=== PATIENT | female | born 1960 | race African-American/Black ===

== ENCOUNTER 2018-07-19 11:10 | Emergency (ER) | payer MEDICAID ==
[~2018-07-19] VITALS: Ht 165.1 cm; Wt 111.0 kg
[2018-07-19] MEDS ORDERED: METHYLPREDNISOLONE SOD SUCC 125 MG/2 ML VIAL IV STA (11:21)
[2018-07-19] MEDS ORDERED: ALBUTEROL (0.083%) 2.5MG/3ML NEB HHN STA (11:21)
[2018-07-19] MEDS ORDERED: IPRATROPIUM BROMIDE (0.02%) 0.5MG/2.5ML NEB HHN STA (11:21)
[2018-07-19] MEDS ORDERED: KETOROLAC 30MG/ML VIAL IV ONE (12:30)
[2018-07-19 12:49] LABS: BASOPHILS % 0.4 % (0.0-2.0); EOSINOPHILS % 5.9 % (0.0-5.0); HEMATOCRIT. 42.9 % (36.0-48.0); LYMPHOCYTES % 40.9 % (20.0-50.0); MEAN CORPUSCULAR HEMOGLOBIN 29.8 pg (28.0-32.0); MEAN CORPUSCULAR VOLUME 91.2 fL (81.0-99.0); MEAN PLATELET VOLUME 8.7 fl (7.4-10.4); MONOCYTES % 10.6 % (2.0-8.0); NEUTROPHILS % 42.2 % (40.0-76.0); PLATELET 217 x1000/uL (130-400); RED CELL DISTRIBUTION WIDTH 13.6 % (11.6-14.6)
[2018-07-19 12:55] LABS: CHLORIDE 102 mEq/L (98-107)
[2018-07-19] MEDS ORDERED: OLANZAPINE 10 MG/VIAL IM ONE (13:45)
[2018-07-19 14:53] VITALS: BP 165/68
== END 2018-07-19 14:54 | disposition home or self-care (01) ==
LOC: ER 12:24
DX: J06.9 Acute upper respiratory infection, unspecified (principal); J45.901 Unspecified asthma with (acute) exacerbation; I10 Essential (primary) hypertension; E78.00 Pure hypercholesterolemia, unspecified; Z87.891 Personal history of nicotine dependence
CPT/HCPCS: 36415; 71045; 80053; 85025; 94640; 96374; 96375; 99285; J1885; J2930; J7611

== ENCOUNTER 2018-11-28 03:57 | Inpatient (IN) | payer MEDICAID ==
[~2018-11-28] VITALS: Ht 165.1 cm; Wt 111.1 kg
[2018-11-28] MEDS ORDERED: IPRATROPIUM BROMIDE (0.02%) 0.5MG/2.5ML NEB HHN STA ×2 (04:50→06:05)
[2018-11-28] MEDS ORDERED: PREDNISONE 20MG TABLET PO STA (04:50)
[2018-11-28] MEDS ORDERED: ALBUTEROL (0.083%) 2.5MG/3ML NEB HHN STA ×2 (04:50→06:05)
[2018-11-28] MEDS ORDERED: ASPIRIN 81MG TABLET PO ONE (05:00)
[2018-11-28 05:49] LABS: BASOPHILS % 0.3 % (0.0-2.0); EOSINOPHILS % 0.8 % (0.0-5.0); HEMATOCRIT. 41.7 % (36.0-48.0); HEMOGLOBIN. 13.8 g/dL (12.0-16.0); LYMPHOCYTES % 19.1 % (20.0-50.0); MEAN CORPUSCULAR HEMOGLOBIN 30.3 pg (28.0-32.0); MEAN CORPUSCULAR VOLUME 91.3 fL (81.0-99.0); MEAN PLATELET VOLUME 8.6 fl (7.4-10.4); MONOCYTES % 9.7 % (2.0-8.0); NEUTROPHILS % 70.1 % (40.0-76.0); PLATELET 217 x1000/uL (130-400); RED BLOOD CELL COUNT 4.57 mill/uL (4.2-5.4); RED CELL DISTRIBUTION WIDTH 13.4 % (11.6-14.6)
[2018-11-28 05:53] LABS: CHLORIDE 102 mEq/L (98-107)
[2018-11-28] MEDS ORDERED: ALBUTEROL (0.5%) 2.5MG/0.5ML NEB HHN ONE (07:15)
[2018-11-28] MEDS ORDERED: IPRATROPIUM/ALBUTEROL 0.5-3(2.5)MG/3ML NEB ONE (07:15)
[2018-11-28] MEDS ORDERED: MAGNESIUM 2 G PREMIX 50 ML IV STA (08:10)
[2018-11-28] MEDS ORDERED: METHYLPREDNISOLONE SOD SUCC 125 MG/2 ML VIAL IV STA (08:50)
[2018-11-28] MEDS ORDERED: ALBUTEROL (0.083%) 2.5MG/3ML NEB HHN ONE ×2 (12:30→22:15)
[2018-11-29] MEDS: CLONIDINE 0.2MG TABLET PO PRN ×2 (00:18→23:42)
[2018-11-29 02:10] VITALS: BP 171/86
[2018-11-29] MEDS ORDERED: MORPHINE SULFATE 4 MG/ML CPJ (NOT FOR IM USE) IV PRN (04:00)
[2018-11-29] MEDS ORDERED: ONDANSETRON HCL 4MG/2ML INJ IV PRN (04:00)
[2018-11-29 05:00] VITALS: BP 160/89
[2018-11-29] MEDS: METHYLPREDNISOLONE SOD SUCC 40 MG/ML VIAL IV SCH ×3 (05:21→21:07)
[2018-11-29] MEDS: AMLODIPINE 10MG TABLET PO SCH (07:54)
[2018-11-29 08:00] VITALS: BP 127/91
[2018-11-29] MEDS: IPRATROPIUM/ALBUTEROL 0.5-3(2.5)MG/3ML NEB HHN SCH ×4 (08:24→21:25)
[2018-11-29] MEDS ORDERED: POTASSIUM CHLORIDE 20MEQ TABLET SR PO SCH (10:30)
[2018-11-29] MEDS ORDERED: GUAIFENESIN-DM 200MG-20MG/10ML UDC PO PRN (10:30)
[2018-11-29 12:00] VITALS: BP 140/68
[2018-11-29] MEDS: AZITHROMYCIN 500 MG TABLET PO SCH (13:34)
[2018-11-29] MEDS ORDERED: TERBUTALINE SULFATE 1MG/ML VIAL SUBCUT NR (15:00)
[2018-11-29 15:35] LABS: CLARITY URINE CLEAR (CLEAR); COLOR URINE YELLOW (YELLOW); KETONES URINE NEGATIVE (NEGATIVE); LEUKOCYTE ESTERASE URINE NEGATIVE (NEGATIVE); NITRITE URINE NEGATIVE (NEGATIVE); OCCULT BLOOD URINE NEGATIVE (NEGATIVE); PH URINE 6.5 (4.5-8.0); PROTEIN URINE NEGATIVE (NEGATIVE); SPECIFIC GRAVITY URINE 1.005 (1.005-1.030); UROBILINOGEN URINE 0.2 E.U./dL (0.2-1.0)
[2018-11-29 15:52] LABS: *AMPHETAMINES SCREEN URINE NEGATIVE (NEGATIVE); *BARBITURATES SCREEN URINE NEGATIVE (NEGATIVE); *BENZODIAZEPINES SCREEN URINE NEGATIVE (NEGATIVE); *COCAINE SCREEN URINE NEGATIVE (NEGATIVE)
[2018-11-29 15:53] LABS: CANNABINOID URINE SCREEN NEGATIVE (NEGATIVE); OPIATES URINE SCREEN NEGATIVE (NEGATIVE); PHENCYCLIDINE URINE SCREEN NEGATIVE (NEGATIVE)
[2018-11-29 15:56] LABS: METHADONE URINE SCREEN NEGATIVE (NEGATIVE)
[2018-11-29 16:00] VITALS: BP 158/83
[2018-11-29 20:00] VITALS: BP 153/70
[2018-11-29] MEDS ORDERED: MONTELUKAST SODIUM 10MG TABLET PO SCH (21:00)
[2018-11-29] MEDS: GUAIFENESIN 600MG ER TABLET PO SCH (21:07)
[2018-11-30] VITALS: BP 174/91
[2018-11-30] MEDS: IPRATROPIUM/ALBUTEROL 0.5-3(2.5)MG/3ML NEB HHN SCH ×4 (00:36→12:33)
[2018-11-30 04:00] VITALS: BP 139/69
[2018-11-30] MEDS: METHYLPREDNISOLONE SOD SUCC 40 MG/ML VIAL IV SCH ×2 (06:14→13:19)
[2018-11-30 07:42] LABS: BASOPHILS % 0.1 % (0.0-2.0); HEMATOCRIT. 41.8 % (36.0-48.0); HEMOGLOBIN. 13.4 g/dL (12.0-16.0); LYMPHOCYTES % 7.8 % (20.0-50.0); MEAN CORPUSCULAR HEMOGLOBIN 29.5 pg (28.0-32.0); MEAN CORPUSCULAR VOLUME 92.3 fL (81.0-99.0); MEAN PLATELET VOLUME 9.4 fl (7.4-10.4); MONOCYTES % 4.3 % (2.0-8.0); NEUTROPHILS % 87.8 % (40.0-76.0); PLATELET 255 x1000/uL (130-400); RED BLOOD CELL COUNT 4.54 mill/uL (4.2-5.4); RED CELL DISTRIBUTION WIDTH 13.3 % (11.6-14.6)
[2018-11-30 07:55] VITALS: BP 162/76
[2018-11-30 08:13] LABS: CHLORIDE 98 mEq/L (98-107)
[2018-11-30] MEDS: AZITHROMYCIN 500 MG TABLET PO SCH (09:18)
[2018-11-30] MEDS: AMLODIPINE 10MG TABLET PO SCH (09:18)
[2018-11-30] MEDS: GUAIFENESIN 600MG ER TABLET PO SCH (09:18)
[2018-11-30] MEDS ORDERED: CLONIDINE 0.1MG TABLET PO PRN (11:00)
[2018-11-30 11:21] VITALS: BP 136/62
[2018-11-30 12:00] VITALS: BP 136/62
== END 2018-11-30 13:45 | disposition home or self-care (01) | DRG 133 ==
LOC: ER 04:15 → 8WST 08:33 → ENRESERV 19:42 → CANRESERV 19:42 → ENRESERV 23:59
PROVIDERS: ADMIT Internal Medicine; ATTEND Internal Medicine
DX: J96.00 Acute respiratory failure, unspecified whether with hypoxia or hypercapnia (principal); I11.0 Hypertensive heart disease with heart failure; J44.1 Chronic obstructive pulmonary disease with (acute) exacerbation; E66.01 Morbid (severe) obesity due to excess calories; I50.40 Unspecified combined systolic (congestive) and diastolic (congestive) heart failure; J45.901 Unspecified asthma with (acute) exacerbation; Z68.41 Body mass index [BMI] 40.0-44.9, adult; E87.6 Hypokalemia; I16.0 Hypertensive urgency; E78.5 Hyperlipidemia, unspecified; Z60.2 Problems related to living alone; D72.821 Monocytosis (symptomatic); E78.00 Pure hypercholesterolemia, unspecified
CPT/HCPCS: 36415; 71045; 80048; 80305; 83036; 83880; 84484; 93005; 93970; 94640; 96365; 96366; 96375; 99285; J2920; J2930; J3105; J3475; J7512; J7611; J7620

== ENCOUNTER 2018-12-19 21:09 | Emergency (ER) | payer MEDICAID ==
[~2018-12-19] VITALS: Ht 165.1 cm; Wt 111.0 kg
[2018-12-19] MEDS ORDERED: PREDNISONE 20MG TABLET PO STA (22:01)
[2018-12-19] MEDS ORDERED: IPRATROPIUM/ALBUTEROL 0.5-3(2.5)MG/3ML NEB HHN ONE (22:15)
[2018-12-19 22:38] LABS: BASOPHILS % 0.7 % (0.0-2.0); EOSINOPHILS % 5.2 % (0.0-5.0); HEMATOCRIT. 41.4 % (36.0-48.0); HEMOGLOBIN. 13.6 g/dL (12.0-16.0); LYMPHOCYTES % 33.1 % (20.0-50.0); MEAN CORPUSCULAR HEMOGLOBIN 29.7 pg (28.0-32.0); MEAN CORPUSCULAR VOLUME 90.6 fL (81.0-99.0); MEAN PLATELET VOLUME 8.8 fl (7.4-10.4); MONOCYTES % 11.4 % (2.0-8.0); NEUTROPHILS % 49.6 % (40.0-76.0); PLATELET 202 x1000/uL (130-400); RED BLOOD CELL COUNT 4.57 mill/uL (4.2-5.4); RED CELL DISTRIBUTION WIDTH 13.1 % (11.6-14.6)
[2018-12-19 22:40] LABS: CHLORIDE 101 mEq/L (98-107)
[2018-12-19 22:43] LABS: PROTHROMBIN TIME 9.6 sec (9.1-11.1)
[2018-12-19 23:21] VITALS: BP 162/77
== END 2018-12-19 23:21 | disposition home or self-care (01) ==
LOC: ER 21:09
DX: J20.9 Acute bronchitis, unspecified (principal); F17.210 Nicotine dependence, cigarettes, uncomplicated
CPT/HCPCS: 36415; 71045; 80053; 83880; 84484; 85025; 85610; 93005; 94640; 99284; J7512; J7620; Z7610

== ENCOUNTER 2019-06-14 07:01 | Inpatient (IN) | payer MEDICAID ==
[~2019-06-14] VITALS: Ht 165.1 cm; Wt 108.9 kg
[2019-06-14] MEDS ORDERED: METHYLPREDNISOLONE SOD SUCC 125 MG/2 ML VIAL IV STA (08:12)
[2019-06-14] MEDS ORDERED: ALBUTEROL (0.083%) 2.5MG/3ML NEB HHN STA ×2 (08:12→09:14)
[2019-06-14] MEDS ORDERED: MAGNESIUM 2 G PREMIX 50 ML IV STA (08:12)
[2019-06-14] MEDS ORDERED: IPRATROPIUM BROMIDE (0.02%) 0.5MG/2.5ML NEB HHN STA (08:12)
[2019-06-14 09:07] LABS: CHLORIDE 105 mEq/L (98-107)
[2019-06-14 09:22] LABS: BASOPHILS % 0.5 % (0.0-2.0); EOSINOPHILS % 3.9 % (0.0-5.0); HEMATOCRIT. 40.3 % (36.0-48.0); HEMOGLOBIN. 13.5 g/dL (12.0-16.0); LYMPHOCYTES % 32.4 % (20.0-50.0); MEAN CORPUSCULAR HEMOGLOBIN 30.5 pg (28.0-32.0); MEAN CORPUSCULAR VOLUME 90.9 fL (81.0-99.0); MEAN PLATELET VOLUME 8.4 fl (7.4-10.4); NEUTROPHILS % 51.2 % (40.0-76.0); PLATELET 202 x1000/uL (130-400); RED BLOOD CELL COUNT 4.43 mill/uL (4.2-5.4); RED CELL DISTRIBUTION WIDTH 13.4 % (11.6-14.6)
[2019-06-14] MEDS ORDERED: CLONIDINE 0.1MG TABLET PO PRN (12:00)
[2019-06-14] MEDS ORDERED: GUAIFENESIN 200MG/10ML SUGAR FREE UDC PO PRN (12:00)
[2019-06-14] MEDS ORDERED: IPRATROPIUM/ALBUTEROL 0.5-3(2.5)MG/3ML NEB INH PRN (12:00)
[2019-06-14] MEDS ORDERED: DOCUSATE SODIUM 100MG CAPSULE PO PRN (12:00)
[2019-06-14] MEDS ORDERED: ONDANSETRON HCL 4MG/2ML INJ IV PRN (12:00)
[2019-06-14] MEDS ORDERED: MAGNESIUM/ALUMINUM HYDROXIDE/SIMETHICONE 30ML UDC PO PRN (12:00)
[2019-06-14] MEDS ORDERED: ACETAMINOPHEN 325MG TABLET PO PRN (12:00)
[2019-06-14] MEDS ORDERED: DIPHENHYDRAMINE 50MG/ML VIAL IV PRN (12:00)
[2019-06-14 13:10] VITALS: BP 177/88
[2019-06-14 13:31] VITALS: BP 177/88
[2019-06-14] MEDS: ENOXAPARIN 30MG/0.3ML SYR SUBCUT SCH ×2 (13:48→21:00)
[2019-06-14] MEDS: METHYLPREDNISOLONE SOD SUCC 125 MG/2 ML VIAL IV SCH ×2 (13:49→21:28)
[2019-06-14 14:54] LABS: PHOSPHORUS 2.6 mg/dL (2.5-4.9)
[2019-06-14] MEDS: IPRATROPIUM/ALBUTEROL 0.5-3(2.5)MG/3ML NEB HHN SCH ×2 (15:22→20:52)
[2019-06-14 16:00] VITALS: BP 165/77
[2019-06-14 19:12] LABS: *AMPHETAMINES SCREEN URINE NEGATIVE (NEGATIVE); *BARBITURATES SCREEN URINE NEGATIVE (NEGATIVE); *BENZODIAZEPINES SCREEN URINE NEGATIVE (NEGATIVE); *COCAINE SCREEN URINE NEGATIVE (NEGATIVE); CANNABINOID URINE SCREEN PRESUMTIVE POSITIVE (NEGATIVE); METHADONE URINE SCREEN NEGATIVE (NEGATIVE); OPIATES URINE SCREEN NEGATIVE (NEGATIVE); PHENCYCLIDINE URINE SCREEN NEGATIVE (NEGATIVE)
[2019-06-14] MEDS: AZITHROMYCIN 500 MG in DEXT 5% WATER 250 ML IV SCH (19:19)
[2019-06-14 20:00] VITALS: BP 141/84
[2019-06-14] MEDS: GUAIFENESIN 600MG ER TABLET PO SCH (20:27)
[2019-06-15] VITALS: BP 159/77
[2019-06-15] MEDS: IPRATROPIUM/ALBUTEROL 0.5-3(2.5)MG/3ML NEB HHN SCH ×5 (01:23→15:19)
[2019-06-15 04:00] VITALS: BP 165/79
[2019-06-15] MEDS: METHYLPREDNISOLONE SOD SUCC 125 MG/2 ML VIAL IV SCH ×2 (05:19→14:00)
[2019-06-15 08:00] VITALS: BP 122/89
[2019-06-15] MEDS: ENOXAPARIN 30MG/0.3ML SYR SUBCUT SCH (09:10)
[2019-06-15] MEDS: GUAIFENESIN 600MG ER TABLET PO SCH (09:10)
[2019-06-15 12:00] VITALS: BP 164/81
[2019-06-15] MEDS: AZITHROMYCIN 500 MG in DEXT 5% WATER 250 ML IV SCH (14:30)
[2019-06-15 16:00] VITALS: BP 101/62
[2019-06-15 16:58] VITALS: BP 130/70
[2019-06-16] MEDS ORDERED: AZITHROMYCIN 500 MG TABLET PO SCH (09:00)
== END 2019-06-15 19:15 | disposition home or self-care (01) | DRG 133 ==
LOC: ER 07:01 → ENRESERV 11:12 → 8WST 12:29
PROVIDERS: ADMIT Internal Medicine; ATTEND Internal Medicine
DX: J96.00 Acute respiratory failure, unspecified whether with hypoxia or hypercapnia (principal); J45.901 Unspecified asthma with (acute) exacerbation; J20.9 Acute bronchitis, unspecified; I10 Essential (primary) hypertension; F12.90 Cannabis use, unspecified, uncomplicated; E66.9 Obesity, unspecified
CPT/HCPCS: 36415; 71045; 80305; 83735; 83880; 84100; 84484; 93005; 94640; 96365; 96366; 96375; 97166; 97535; 99285; J0456; J1650; J2930; J3475; J7060; J7611; J7620

== ENCOUNTER 2019-06-16 09:22 | Inpatient (IN) | payer MEDICAID, OTHER ==
[~2019-06-16] VITALS: Ht 165.1 cm; Wt 110.2 kg
[2019-06-16] MEDS ORDERED: METHYLPREDNISOLONE SOD SUCC 125 MG/2 ML VIAL IV STA (09:54)
[2019-06-16] MEDS ORDERED: ALBUTEROL (0.083%) 2.5MG/3ML NEB HHN STA (09:54)
[2019-06-16] MEDS ORDERED: MAGNESIUM 2 G PREMIX 50 ML IV STA (09:54)
[2019-06-16] MEDS ORDERED: IPRATROPIUM BROMIDE (0.02%) 0.5MG/2.5ML NEB HHN STA (09:54)
[2019-06-16 11:22] LABS: CHLORIDE 101 mEq/L (98-107)
[2019-06-16 11:26] LABS: BASOPHILS % 0.2 % (0.0-2.0); EOSINOPHILS % 0.3 % (0.0-5.0); HEMOGLOBIN. 13.7 g/dL (12.0-16.0); LYMPHOCYTES % 20.1 % (20.0-50.0); MEAN CORPUSCULAR HEMOGLOBIN 30.5 pg (28.0-32.0); MEAN CORPUSCULAR VOLUME 90.9 fL (81.0-99.0); MEAN PLATELET VOLUME 9.3 fl (7.4-10.4); MONOCYTES % 9.7 % (2.0-8.0); NEUTROPHILS % 69.7 % (40.0-76.0); PLATELET 237 x1000/uL (130-400); RED BLOOD CELL COUNT 4.51 mill/uL (4.2-5.4); RED CELL DISTRIBUTION WIDTH 13.8 % (11.6-14.6)
[2019-06-16] MEDS ORDERED: LEVOFLOXACIN 750MG PREMIX 150 ML IV ONE (11:45)
[2019-06-16 14:30] VITALS: BP 150/88
[2019-06-16] MEDS ORDERED: ACETAMINOPHEN 325MG TABLET PO PRN (14:30)
[2019-06-16] MEDS ORDERED: IPRATROPIUM/ALBUTEROL 0.5-3(2.5)MG/3ML NEB HHN PRN (14:30)
[2019-06-16] MEDS ORDERED: GUAIFENESIN-DM 200MG-20MG/10ML UDC PO PRN (14:30)
[2019-06-16] MEDS ORDERED: ONDANSETRON HCL 4MG/2ML INJ IV PRN (14:30)
[2019-06-16] MEDS: IPRATROPIUM/ALBUTEROL 0.5-3(2.5)MG/3ML NEB HHN SCH ×2 (16:45→21:48)
[2019-06-16] MEDS: METHYLPREDNISOLONE SOD SUCC 40 MG/ML VIAL IV SCH (16:53)
[2019-06-16] MEDS: ENOXAPARIN 30MG/0.3ML SYR SUBCUT SCH (16:53)
[2019-06-16 20:00] VITALS: BP 182/87
[2019-06-16] MEDS: AMLODIPINE 10MG TABLET PO SCH (22:31)
[2019-06-16] MEDS: GUAIFENESIN 600MG ER TABLET PO SCH (22:31)
[2019-06-17] VITALS: BP 160/81
[2019-06-17] MEDS: METHYLPREDNISOLONE SOD SUCC 40 MG/ML VIAL IV SCH ×4 (00:35→16:03)
[2019-06-17] MEDS: IPRATROPIUM/ALBUTEROL 0.5-3(2.5)MG/3ML NEB HHN SCH ×4 (02:08→23:25)
[2019-06-17 04:00] VITALS: BP 190/85
[2019-06-17] MEDS: ENOXAPARIN 30MG/0.3ML SYR SUBCUT SCH ×2 (05:28→18:00)
[2019-06-17] MEDS: CLONIDINE 0.1MG TABLET PO PRN ×2 (05:28→20:38)
[2019-06-17 08:00] VITALS: BP 115/66
[2019-06-17] MEDS: BENAZEPRIL 10MG TABLET PO SCH (08:45)
[2019-06-17] MEDS: AMLODIPINE 10MG TABLET PO SCH (08:45)
[2019-06-17] MEDS: GUAIFENESIN 600MG ER TABLET PO SCH ×2 (08:45→20:38)
[2019-06-17 12:00] VITALS: BP 120/74
[2019-06-17] MEDS ORDERED: LEVOFLOXACIN 750MG PREMIX 150 ML IV SCH (12:00)
[2019-06-17] MEDS ORDERED: GUAIFENESIN-DM 200MG-20MG/10ML UDC PO PRN (13:45)
[2019-06-17 16:00] VITALS: BP 160/73
[2019-06-17] MEDS: BUDESONIDE 0.5MG/2ML NEB HHN SCH (16:28)
[2019-06-17 20:00] VITALS: BP 171/87
[2019-06-18] VITALS: BP 148/77
[2019-06-18 04:00] VITALS: BP 168/66
[2019-06-18] MEDS: IPRATROPIUM/ALBUTEROL 0.5-3(2.5)MG/3ML NEB HHN SCH ×2 (04:27→09:15)
[2019-06-18] MEDS: ENOXAPARIN 30MG/0.3ML SYR SUBCUT SCH (06:00)
[2019-06-18 08:00] VITALS: BP 171/82
[2019-06-18] MEDS: METHYLPREDNISOLONE SOD SUCC 40 MG/ML VIAL IV SCH ×2 (08:00)
[2019-06-18 08:54] LABS: CLARITY URINE CLOUDY (CLEAR); COLOR URINE YELLOW (YELLOW); KETONES URINE NEGATIVE (NEGATIVE); LEUKOCYTE ESTERASE URINE NEGATIVE (NEGATIVE); NITRITE URINE NEGATIVE (NEGATIVE); OCCULT BLOOD URINE NEGATIVE (NEGATIVE); PROTEIN URINE NEGATIVE (NEGATIVE)
[2019-06-18] MEDS: BENAZEPRIL 10MG TABLET PO SCH (09:00)
[2019-06-18] MEDS: AMLODIPINE 10MG TABLET PO SCH (09:00)
[2019-06-18] MEDS: GUAIFENESIN 600MG ER TABLET PO SCH (09:00)
[2019-06-18 09:09] VITALS: BP 171/82
[2019-06-18] MEDS: BUDESONIDE 0.5MG/2ML NEB HHN SCH (09:15)
[2019-06-18 09:52] LABS: *AMPHETAMINES SCREEN URINE NEGATIVE (NEGATIVE); *BARBITURATES SCREEN URINE NEGATIVE (NEGATIVE)
[2019-06-18 09:53] LABS: *BENZODIAZEPINES SCREEN URINE NEGATIVE (NEGATIVE); *COCAINE SCREEN URINE NEGATIVE (NEGATIVE); CANNABINOID URINE SCREEN NEGATIVE (NEGATIVE); METHADONE URINE SCREEN NEGATIVE (NEGATIVE); OPIATES URINE SCREEN NEGATIVE (NEGATIVE); PHENCYCLIDINE URINE SCREEN NEGATIVE (NEGATIVE)
[2019-06-18] MEDS ORDERED: LEVOFLOXACIN 750MG PREMIX 150 ML IV SCH (12:00)
== END 2019-06-18 11:56 | disposition home or self-care (01) | DRG 139 ==
LOC: ER 09:22 → 8WST 12:35 → ENRESERV 13:15
PROVIDERS: ADMIT Internal Medicine; ATTEND Internal Medicine
DX: J18.1 Lobar pneumonia, unspecified organism (principal); J96.00 Acute respiratory failure, unspecified whether with hypoxia or hypercapnia; J45.901 Unspecified asthma with (acute) exacerbation; Z68.41 Body mass index [BMI] 40.0-44.9, adult; R65.10 Systemic inflammatory response syndrome (SIRS) of non-infectious origin without acute organ dysfunction; I10 Essential (primary) hypertension; F12.90 Cannabis use, unspecified, uncomplicated; E66.9 Obesity, unspecified; Z71.3 Dietary counseling and surveillance; Z87.891 Personal history of nicotine dependence
CPT/HCPCS: 36415; 71045; 80305; 81003; 83880; 84484; 93005; 94640; 96365; 96367; 96375; 99285; J1650; J1956; J2920; J2930; J3475; J7611; J7620; J7626

== ENCOUNTER 2019-09-06 22:33 | Emergency (ER) | payer MEDICAID ==
[~2019-09-06] VITALS: Ht 165.1 cm; Wt 100.0 kg
[2019-09-07] MEDS ORDERED: DIAZEPAM 5 MG TABLET PO ONE (00:45)
[2019-09-07] MEDS ORDERED: KETOROLAC 60MG/2ML VIAL IM ONE (02:00)
[2019-09-07 02:57] VITALS: BP 148/80
== END 2019-09-07 02:58 | disposition home or self-care (01) ==
LOC: ER 22:33
DX: M54.41 Lumbago with sciatica, right side (principal); J45.909 Unspecified asthma, uncomplicated; I10 Essential (primary) hypertension
CPT/HCPCS: 96372; 99283; J1885; Z7610

== ENCOUNTER 2019-09-07 05:37 | Emergency (ER) | payer MEDICAID ==
[~2019-09-07] VITALS: Ht 167.6 cm; Wt 104.0 kg
[2019-09-07] MEDS ORDERED: KETOROLAC 60MG/2ML VIAL IM ONE (07:00)
[2019-09-07] MEDS ORDERED: DEXAMETHASONE 4MG/ML 1ML VIAL IM ONE (07:00)
[2019-09-07] MEDS ORDERED: HYDROCODONE/ACETAMINOPHEN 5/325MG TABLET PO ONE (07:00)
[2019-09-07 09:30] VITALS: BP 158/85
== END 2019-09-07 11:00 | disposition home or self-care (01) ==
LOC: ER 05:55
DX: M54.41 Lumbago with sciatica, right side (principal); J45.909 Unspecified asthma, uncomplicated; E78.00 Pure hypercholesterolemia, unspecified; I10 Essential (primary) hypertension; Z91.041 Radiographic dye allergy status
CPT/HCPCS: 96372; 99283; J1100; J1885

== ENCOUNTER 2019-11-14 06:44 | Inpatient (IN) | payer MEDICAID ==
[~2019-11-14] VITALS: Ht 165.1 cm; Wt 115.7 kg
[~2019-11-14 06:44] MED LIST: ALBU18HF2 IH; FLUT1DIS3 INH; GABA-531 MT; HYDR-4001 MT
[2019-11-14] MEDS ORDERED: KETOROLAC 30MG/ML VIAL IV STA (08:31)
[2019-11-14] MEDS ORDERED: IPRATROPIUM BROMIDE (0.02%) 0.5MG/2.5ML NEB HHN STA (08:31)
[2019-11-14] MEDS ORDERED: ALBUTEROL (0.083%) 2.5MG/3ML NEB HHN STA (08:31)
[2019-11-14] MEDS ORDERED: SODIUM CHLORIDE 0.9% 1,000 ML IV ONE (08:31)
[2019-11-14] MEDS ORDERED: METHYLPREDNISOLONE SOD SUCC 125 MG/2 ML VIAL IV STA (08:31)
[2019-11-14 10:22] LABS: BASOPHILS % 0.8 % (0.0-2.0); EOSINOPHILS % 4.1 % (0.0-5.0); HEMATOCRIT. 39.1 % (36.0-48.0); HEMOGLOBIN. 12.9 g/dL (12.0-16.0); LYMPHOCYTES % 31.9 % (20.0-50.0); MEAN CORPUSCULAR HEMOGLOBIN 30.2 pg (28.0-32.0); MEAN CORPUSCULAR VOLUME 91.5 fL (81.0-99.0); MEAN PLATELET VOLUME 8.3 fl (7.4-10.4); MONOCYTES % 13.1 % (2.0-8.0); NEUTROPHILS % 50.1 % (40.0-76.0); PLATELET 201 x1000/uL (130-400); RED BLOOD CELL COUNT 4.27 mill/uL (4.2-5.4); RED CELL DISTRIBUTION WIDTH 13.4 % (11.6-14.6)
[2019-11-14 10:32] LABS: CHLORIDE 104 mEq/L (98-107)
[2019-11-14] MEDS ORDERED: ALBUTEROL (0.083%) 2.5MG/3ML NEB HHN ONE (12:15)
[2019-11-14] MEDS ORDERED: NA PHOS,M-B/NA PHOS,DI-BA ENEMA 118ML PR PRN (17:45)
[2019-11-14] MEDS ORDERED: ACETAMINOPHEN 325MG TABLET PO PRN (17:45)
[2019-11-14] MEDS ORDERED: MORPHINE SULFATE 2 MG/ML CPJ (NOT FOR IM USE) IV PRN (17:45)
[2019-11-14] MEDS ORDERED: IPRATROPIUM/ALBUTEROL 0.5-3(2.5)MG/3ML NEB NEB PRN (17:45)
[2019-11-14] MEDS ORDERED: DIPHENHYDRAMINE 50MG/ML VIAL IV PRN (17:45)
[2019-11-14] MEDS ORDERED: HYDROCODONE/ACETAMINOPHEN 10/325MG TABLET PO PRN (17:45)
[2019-11-14] MEDS ORDERED: MAGNESIUM/ALUMINUM HYDROXIDE/SIMETHICONE 30ML UDC PO PRN (17:45)
[2019-11-14] MEDS ORDERED: DOCUSATE SODIUM 100MG CAPSULE PO PRN (17:45)
[2019-11-14] MEDS ORDERED: LORAZEPAM 2MG/ML CPJ IV PRN (17:45)
[2019-11-14] MEDS ORDERED: GUAIFENESIN 200MG/10ML SUGAR FREE UDC PO PRN (17:45)
[2019-11-14] MEDS ORDERED: ONDANSETRON HCL 4MG/2ML INJ IV PRN (17:45)
[2019-11-14] MEDS ORDERED: LEVOFLOXACIN 500MG PREMIX 100 ML IV SCH (20:15)
[2019-11-14] MEDS: CLONIDINE 0.1MG TABLET PO PRN (20:52)
[2019-11-14] MEDS: METHYLPREDNISOLONE SOD SUCC 125 MG/2 ML VIAL IV SCH (21:52)
[2019-11-14 23:42] LABS: CHLORIDE 102 mEq/L (98-107)
[2019-11-15 04:14] LABS: HEMATOCRIT. 39.8 % (36.0-48.0); HEMOGLOBIN. 13.1 g/dL (12.0-16.0); MEAN CORPUSCULAR HEMOGLOBIN 30.2 pg (28.0-32.0); MEAN CORPUSCULAR VOLUME 91.5 fL (81.0-99.0); MEAN PLATELET VOLUME 9.2 fl (7.4-10.4); PLATELET 216 x1000/uL (130-400); RED BLOOD CELL COUNT 4.35 mill/uL (4.2-5.4); RED CELL DISTRIBUTION WIDTH 13.2 % (11.6-14.6)
[2019-11-15 04:29] LABS: CHLORIDE 102 mEq/L (98-107)
[2019-11-15 04:38] LABS: LDL CHOLESTEROL 167 mg/dL (5-100)
[2019-11-15 04:40] LABS: HDL CHOLESTEROL 71 mg/dL (40-59); T4 FREE 0.91 ng/dL (0.76-1.46)
[2019-11-15 05:19] LABS: ATYPICAL LYMPHOCYTES 2
[2019-11-15 05:20] LABS: PLATELET ESTIMATE NORMAL
[2019-11-15] MEDS: ASPIRIN 81MG EC TABLET PO SCH (12:08)
[2019-11-15] MEDS: FUROSEMIDE 40MG/4ML VIAL IV SCH (12:08)
[2019-11-15] MEDS: ENOXAPARIN 40MG/0.4ML SYR SUBCUT SCH ×2 (14:00→15:50)
[2019-11-15 14:38] VITALS: BP 151/65
[2019-11-15 16:00] VITALS: BP 169/79
[2019-11-15] MEDS: METHYLPREDNISOLONE SOD SUCC 125 MG/2 ML VIAL IV SCH (16:00)
[2019-11-15] MEDS ORDERED: MONTELUKAST SODIUM 10MG TABLET PO SCH (17:00)
[2019-11-15 20:00] VITALS: BP 125/76
[2019-11-15] MEDS: IPRATROPIUM/ALBUTEROL 0.5-3(2.5)MG/3ML NEB HHN SCH (20:56)
[2019-11-15] MEDS: FLUTICASONE PROPIONATE 50MCG/SPRAY BOTTLE BOTHNSTRLS SCH ×2 (21:00→22:57)
[2019-11-15] MEDS ORDERED: LEVOFLOXACIN 500MG PREMIX 100 ML IV SCH (21:00)
[2019-11-15] MEDS: FAMOTIDINE 20MG/2ML VIAL IV SCH (21:35)
[2019-11-15] MEDS: GUAIFENESIN 600MG ER TABLET PO SCH (21:36)
[2019-11-15] MEDS: ENOXAPARIN 30MG/0.3ML SYR SUBCUT SCH (21:38)
[2019-11-16] VITALS: BP 172/91
[2019-11-16] MEDS: CLONIDINE 0.1MG TABLET PO PRN (02:20)
[2019-11-16 04:00] VITALS: BP 175/83
[2019-11-16 08:00] VITALS: BP 116/64
[2019-11-16] MEDS: FLUTICASONE PROPIONATE 50MCG/SPRAY BOTTLE BOTHNSTRLS SCH (09:00)
[2019-11-16] MEDS: FUROSEMIDE 40MG/4ML VIAL IV SCH (09:00)
[2019-11-16] MEDS: ENOXAPARIN 30MG/0.3ML SYR SUBCUT SCH (09:00)
[2019-11-16] MEDS: FAMOTIDINE 20MG/2ML VIAL IV SCH (09:00)
[2019-11-16] MEDS: GUAIFENESIN 600MG ER TABLET PO SCH (09:00)
[2019-11-16] MEDS ORDERED: LORATADINE 10MG TABLET PO SCH (09:00)
[2019-11-16] MEDS: ASPIRIN 81MG EC TABLET PO SCH (09:00)
[2019-11-16 09:31] VITALS: BP 116/64
[2019-11-16] MEDS: IPRATROPIUM/ALBUTEROL 0.5-3(2.5)MG/3ML NEB HHN SCH (09:34)
[2019-11-16 12:00] VITALS: BP 148/80
== END 2019-11-16 15:00 | disposition home or self-care (01) | DRG 133 ==
LOC: ER 06:44 → 7WST 13:27 → ENRESERV 11-15 12:26
PROVIDERS: ADMIT Internal Medicine; ATTEND Internal Medicine
DX: J96.00 Acute respiratory failure, unspecified whether with hypoxia or hypercapnia (principal); J18.9 Pneumonia, unspecified organism; I11.0 Hypertensive heart disease with heart failure; R65.10 Systemic inflammatory response syndrome (SIRS) of non-infectious origin without acute organ dysfunction; J44.0 Chronic obstructive pulmonary disease with (acute) lower respiratory infection; I50.9 Heart failure, unspecified; J45.901 Unspecified asthma with (acute) exacerbation; G89.29 Other chronic pain; M54.40 Lumbago with sciatica, unspecified side; I25.10 Atherosclerotic heart disease of native coronary artery without angina pectoris; I25.2 Old myocardial infarction; Z91.041 Radiographic dye allergy status; Z87.891 Personal history of nicotine dependence
CPT/HCPCS: 36415; 71045; 80048; 80053; 80061; 84439; 84443; 84484; 85025; 93005; 94640; 96365; 96375; 99285; J1650; J1885; J1940; J1956; J2060; J2930; J3490; J7030

== ENCOUNTER 2020-04-07 06:47 | Inpatient (IN) | payer MEDICAID ==
[~2020-04-07] VITALS: Ht 165.1 cm; Wt 118.0 kg
[2020-04-07] MEDS ORDERED: IPRATROPIUM BROMIDE (0.02%) 0.5MG/2.5ML NEB HHN STA (07:33)
[2020-04-07] MEDS ORDERED: FUROSEMIDE 40MG/4ML VIAL IV ONE (07:45)
[2020-04-07] MEDS: ALBUTEROL (0.083%) 2.5MG/3ML NEB HHN SCH ×3 (07:49→08:52)
[2020-04-07] MEDS ORDERED: HYDROCODONE/ACETAMINOPHEN 5/325MG TABLET PO ONE (08:00)
[2020-04-07 08:06] LABS: BASOPHILS % 0.9 % (0.0-2.0); EOSINOPHILS % 3.7 % (0.0-5.0); HEMATOCRIT. 40.5 % (36.0-48.0); HEMOGLOBIN. 13.3 g/dL (12.0-16.0); LYMPHOCYTES % 36.1 % (20.0-50.0); MEAN CORPUSCULAR HEMOGLOBIN 30.2 pg (28.0-32.0); MEAN CORPUSCULAR VOLUME 91.7 fL (81.0-99.0); MEAN PLATELET VOLUME 8.4 fl (7.4-10.4); MONOCYTES % 11.3 % (2.0-8.0); PLATELET 197 x1000/uL (130-400); RED BLOOD CELL COUNT 4.41 mill/uL (4.2-5.4); RED CELL DISTRIBUTION WIDTH 13.8 % (11.6-14.6)
[2020-04-07 08:12] LABS: CHLORIDE 102 mEq/L (98-107)
[2020-04-07 11:45] VITALS: BP 161/67
[2020-04-07] MEDS ORDERED: DOCUSATE SODIUM 100MG CAPSULE PO PRN (13:15)
[2020-04-07] MEDS ORDERED: LORAZEPAM 0.5MG TABLET PO PRN (13:15)
[2020-04-07] MEDS ORDERED: CLONIDINE 0.1MG TABLET PO PRN (13:15)
[2020-04-07] MEDS ORDERED: ACETAMINOPHEN 325MG TABLET PO PRN (13:15)
[2020-04-07] MEDS ORDERED: ONDANSETRON HCL 4MG/2ML INJ IV PRN (13:15)
[2020-04-07 16:00] VITALS: BP 187/94
[2020-04-07 20:00] VITALS: BP 166/68
[2020-04-07] MEDS: FUROSEMIDE 40MG/4ML VIAL IVP SCH (20:50)
[2020-04-07] MEDS: BENZONATATE 100MG CAPSULE PO PRN (20:50)
[2020-04-07] MEDS: AMLODIPINE 5MG TABLET PO SCH (22:00)
[2020-04-07] MEDS: IPRATROPIUM/ALBUTEROL 0.5-3(2.5)MG/3ML NEB HHN PRN (22:56)
[2020-04-08 00:06] VITALS: BP 163/82
[2020-04-08 04:00] VITALS: BP 159/80
[2020-04-08] MEDS: BENZONATATE 100MG CAPSULE PO PRN (04:27)
[2020-04-08 06:16] LABS: BASOPHILS % 0.7 % (0.0-2.0); EOSINOPHILS % 3.6 % (0.0-5.0); HEMATOCRIT. 40.1 % (36.0-48.0); HEMOGLOBIN. 13.3 g/dL (12.0-16.0); LYMPHOCYTES % 33.8 % (20.0-50.0); MEAN CORPUSCULAR HEMOGLOBIN 30.2 pg (28.0-32.0); MEAN CORPUSCULAR VOLUME 91.1 fL (81.0-99.0); MEAN PLATELET VOLUME 8.8 fl (7.4-10.4); NEUTROPHILS % 50.9 % (40.0-76.0); PLATELET 207 x1000/uL (130-400); RED CELL DISTRIBUTION WIDTH 13.9 % (11.6-14.6)
[2020-04-08] MEDS: FUROSEMIDE 40MG/4ML VIAL IVP SCH (06:17)
[2020-04-08 07:11] LABS: CHLORIDE 98 mEq/L (98-107)
[2020-04-08 07:17] LABS: PHOSPHORUS 3.7 mg/dL (2.5-4.9)
[2020-04-08 07:58] VITALS: BP 148/76
[2020-04-08] MEDS: AMLODIPINE 5MG TABLET PO SCH (08:37)
[2020-04-08] MEDS: ENOXAPARIN 30MG/0.3ML SYR SUBCUT SCH ×3 (08:37→21:38)
[2020-04-08] MEDS: IPRATROPIUM/ALBUTEROL 0.5-3(2.5)MG/3ML NEB HHN PRN ×2 (09:50→14:21)
[2020-04-08 12:00] VITALS: BP 161/86
[2020-04-08] MEDS: HYDROCODONE/ACETAMINOPHEN 5/325MG TABLET PO PRN ×2 (14:08→16:12)
[2020-04-08 15:50] VITALS: BP 145/75
[2020-04-08 20:00] VITALS: BP 124/88
[2020-04-08] MEDS: AMLODIPINE 2.5MG TABLET PO SCH ×2 (21:00→21:39)
[2020-04-09] VITALS: BP 158/74
[2020-04-09 04:00] VITALS: BP 148/72
[2020-04-09 07:38] LABS: BASOPHILS % 0.7 % (0.0-2.0); EOSINOPHILS % 3.7 % (0.0-5.0); HEMATOCRIT. 43.5 % (36.0-48.0); HEMOGLOBIN. 14.1 g/dL (12.0-16.0); LYMPHOCYTES % 26.8 % (20.0-50.0); MEAN CORPUSCULAR HEMOGLOBIN 29.6 pg (28.0-32.0); MEAN CORPUSCULAR VOLUME 91.4 fL (81.0-99.0); MONOCYTES % 9.1 % (2.0-8.0); NEUTROPHILS % 59.7 % (40.0-76.0); PLATELET 224 x1000/uL (130-400); RED BLOOD CELL COUNT 4.76 mill/uL (4.2-5.4); RED CELL DISTRIBUTION WIDTH 14.1 % (11.6-14.6)
[2020-04-09 07:40] LABS: CHLORIDE 99 mEq/L (98-107)
[2020-04-09 08:00] VITALS: BP 146/68
[2020-04-09] MEDS: AMLODIPINE 2.5MG TABLET PO SCH (08:25)
[2020-04-09] MEDS: ENOXAPARIN 30MG/0.3ML SYR SUBCUT SCH (08:28)
[2020-04-09] MEDS ORDERED: BENZ-16 MT (09:45)
[2020-04-09] MEDS ORDERED: FURO40TA5 MT ×2 (09:45→09:48)
[2020-04-09] MEDS ORDERED: AMLO2.5T45 PO (09:45)
[2020-04-09] MEDS ORDERED: ATOR20TA65 MT (09:48)
[2020-04-09 10:32] VITALS: BP 135/61
== END 2020-04-09 11:20 | disposition home or self-care (01) | DRG 133 ==
LOC: ER 07:00 → MICUSO 10:02 → EDBEDREQ 10:05 → 6WST 11:41
PROVIDERS: ADMIT Internal Medicine; ATTEND Internal Medicine
DX: J96.00 Acute respiratory failure, unspecified whether with hypoxia or hypercapnia (principal); I11.0 Hypertensive heart disease with heart failure; J44.1 Chronic obstructive pulmonary disease with (acute) exacerbation; J45.21 Mild intermittent asthma with (acute) exacerbation; Z68.41 Body mass index [BMI] 40.0-44.9, adult; I50.9 Heart failure, unspecified; I44.0 Atrioventricular block, first degree; M54.30 Sciatica, unspecified side; I16.0 Hypertensive urgency; I87.2 Venous insufficiency (chronic) (peripheral); M54.9 Dorsalgia, unspecified; G89.29 Other chronic pain; E66.9 Obesity, unspecified; Z87.891 Personal history of nicotine dependence; Z91.041 Radiographic dye allergy status
CPT/HCPCS: 36415; 71045; 80048; 80053; 83735; 83880; 84100; 84484; 85025; 85379; 93005; 93306; 94640; 99291; J1650; J1940; J2405

== ENCOUNTER 2020-05-09 22:03 | Emergency (ER) | payer MEDICAID ==
[~2020-05-09] VITALS: Ht 170.2 cm; Wt 90.0 kg
[~2020-05-09 22:03] MED LIST changes: +AMLO2.5T45 PO; +ATOR20TA65 MT; +BENZ-16 MT; +FURO40TA5 MT
[2020-05-09] MEDS ORDERED: HYDROCODONE/ACETAMINOPHEN 5/325MG TABLET PO STA (23:00)
[2020-05-09 23:17] LABS: CLARITY URINE CLEAR (CLEAR); COLOR URINE YELLOW (YELLOW); KETONES URINE TRACE (NEGATIVE); LEUKOCYTE ESTERASE URINE NEGATIVE (NEGATIVE); NITRITE URINE NEGATIVE (NEGATIVE); OCCULT BLOOD URINE NEGATIVE (NEGATIVE); PROTEIN URINE NEGATIVE (NEGATIVE); SPECIFIC GRAVITY URINE 1.024 (1.005-1.030)
[2020-05-10] MEDS ORDERED: ACETAMINOPHEN 325MG TABLET PO STA (00:04)
[2020-05-10] MEDS ORDERED: HYDROCODONE/ACETAMINOPHEN 5/325MG TABLET PO STA (02:24)
[2020-05-10 02:41] VITALS: BP 158/94
== END 2020-05-10 03:17 | disposition home or self-care (01) ==
LOC: ER 22:03
DX: M25.552 Pain in left hip (principal); R51 Headache; R07.9 Chest pain, unspecified; J45.909 Unspecified asthma, uncomplicated; I10 Essential (primary) hypertension; W01.0XXA Fall on same level from slipping, tripping and stumbling without subsequent striking against object, initial encounter; Y92.9 Unspecified place or not applicable; Z88.9 Allergy status to unspecified drugs, medicaments and biological substances
CPT/HCPCS: 73502; 81003; 93005; 99285

== ENCOUNTER 2020-05-16 16:48 | Emergency (ER) | payer MEDICAID ==
[~2020-05-16] VITALS: Ht 165.1 cm; Wt 68.0 kg
[2020-05-16] MEDS ORDERED: IPRATROPIUM/ALBUTEROL 0.5-3(2.5)MG/3ML NEB HHN ONE (22:15)
[2020-05-16] MEDS ORDERED: IPRATROPIUM BROMIDE (0.02%) 0.5MG/2.5ML NEB HHN STA (22:27)
[2020-05-16] MEDS ORDERED: PREDNISONE 20MG TABLET PO STA (22:27)
[2020-05-16] MEDS ORDERED: ALBUTEROL (0.083%) 2.5MG/3ML NEB HHN STA (22:27)
[2020-05-16 23:35] VITALS: BP 137/67
== END 2020-05-16 23:44 | disposition home or self-care (01) ==
LOC: ER 16:48
DX: M25.562 Pain in left knee (principal); M25.561 Pain in right knee; J45.901 Unspecified asthma with (acute) exacerbation; I10 Essential (primary) hypertension; Z91.041 Radiographic dye allergy status; Z79.899 Other long term (current) drug therapy
CPT/HCPCS: 73562; 99283

== ENCOUNTER 2020-06-26 21:34 | Emergency (ER) | payer MEDICAID ==
[~2020-06-26] VITALS: Ht 170.2 cm; Wt 109.0 kg
[2020-06-27 00:31] LABS: BASOPHILS % 0.5 % (0.0-2.0); EOSINOPHILS % 5.5 % (0.0-5.0); HEMOGLOBIN. 13.2 g/dL (12.0-16.0); LYMPHOCYTES % 32.7 % (20.0-50.0); MEAN CORPUSCULAR HEMOGLOBIN 30.2 pg (28.0-32.0); MEAN CORPUSCULAR VOLUME 91.8 fL (81.0-99.0); MEAN PLATELET VOLUME 8.3 fl (7.4-10.4); MONOCYTES % 10.8 % (2.0-8.0); NEUTROPHILS % 50.5 % (40.0-76.0); PLATELET 218 x1000/uL (130-400); RED BLOOD CELL COUNT 4.36 mill/uL (4.2-5.4); RED CELL DISTRIBUTION WIDTH 14.9 % (11.6-14.6)
[2020-06-27 00:37] LABS: CHLORIDE 104 mEq/L (98-107)
[2020-06-27 01:00] VITALS: BP 140/62
== END 2020-06-27 04:35 | disposition home or self-care (01) ==
LOC: ER 21:34
DX: R60.9 Edema, unspecified (principal); I11.0 Hypertensive heart disease with heart failure; I50.9 Heart failure, unspecified; J45.909 Unspecified asthma, uncomplicated; Z79.899 Other long term (current) drug therapy; Z91.041 Radiographic dye allergy status
CPT/HCPCS: 36415; 71045; 80053; 83880; 84484; 85025; 93005; 99285

== ENCOUNTER 2020-08-07 19:30 | Emergency (ER) | payer MEDICAID ==
[~2020-08-07] VITALS: Ht 165.1 cm; Wt 118.0 kg
[2020-08-07] MEDS ORDERED: ACETAMINOPHEN 500MG TABLET PO ONE (22:45)
[2020-08-07 23:24] VITALS: BP 174/71
[2020-08-07] MEDS ORDERED: TRAMADOL 50MG TABLET PO ONE (23:30)
== END 2020-08-08 00:16 | disposition home or self-care (01) ==
LOC: ER 19:30
DX: S83.8X1A Sprain of other specified parts of right knee, initial encounter (principal); W06.XXXA Fall from bed, initial encounter; Y93.89 Activity, other specified; Y92.89 Other specified places as the place of occurrence of the external cause; Y99.8 Other external cause status; J45.909 Unspecified asthma, uncomplicated; I10 Essential (primary) hypertension; Z79.899 Other long term (current) drug therapy
CPT/HCPCS: 73562; 99283

== ENCOUNTER 2020-08-24 03:11 | Emergency (ER) | payer MEDICAID ==
[~2020-08-24] VITALS: Ht 165.1 cm; Wt 117.0 kg
[2020-08-24] MEDS ORDERED: ACETAMINOPHEN 500MG TABLET PO ONE (04:30)
[2020-08-24 04:36] VITALS: BP 153/84
== END 2020-08-24 04:54 | disposition home or self-care (01) ==
LOC: ER 03:11
DX: G47.00 Insomnia, unspecified (principal); G89.29 Other chronic pain; J45.909 Unspecified asthma, uncomplicated; I11.9 Hypertensive heart disease without heart failure; Z88.5 Allergy status to narcotic agent; Z91.041 Radiographic dye allergy status
CPT/HCPCS: 99282

== ENCOUNTER 2020-12-15 02:43 | Emergency (ER) | payer MEDICAID, OTHER ==
[~2020-12-15] VITALS: Ht 160 cm; Wt 101.0 kg
[~2020-12-15 02:43] MED LIST changes: -GABA-531 MT; +GABA-532 MT
[2020-12-15] MEDS: KETOROLAC 60MG/2ML VIAL IM ONE (03:38)
[2020-12-15 04:00] VITALS: BP 142/82
== END 2020-12-15 04:05 | disposition home or self-care (01) ==
LOC: ER 02:43
DX: M79.604 Pain in right leg (principal); J45.909 Unspecified asthma, uncomplicated; I10 Essential (primary) hypertension; Z79.899 Other long term (current) drug therapy; Z88.5 Allergy status to narcotic agent
CPT/HCPCS: 96372; 99283; J1885

== ENCOUNTER 2021-01-10 02:38 | Emergency (ER) | payer MEDICAID, OTHER ==
[~2021-01-10] VITALS: Ht 167.6 cm; Wt 118.0 kg
[2021-01-10] MEDS ORDERED: MECLIZINE 12.5MG TABLET PO ONE (03:45)
[2021-01-10 04:17] LABS: BASOPHILS % 0.7 % (0.0-2.0); EOSINOPHILS % 3.2 % (0.0-5.0); HEMATOCRIT. 42.5 % (36.0-48.0); HEMOGLOBIN. 13.7 g/dL (12.0-16.0); LYMPHOCYTES % 37.2 % (20.0-50.0); MEAN CORPUSCULAR HEMOGLOBIN 29.7 pg (28.0-32.0); MEAN CORPUSCULAR VOLUME 92.5 fL (81.0-99.0); MEAN PLATELET VOLUME 8.3 fl (7.4-10.4); MONOCYTES % 9.9 % (2.0-8.0); PLATELET 216 x1000/uL (130-400); RED CELL DISTRIBUTION WIDTH 13.9 % (11.6-14.6)
[2021-01-10 04:21] LABS: CHLORIDE 102 mEq/L (98-107)
[2021-01-10] MEDS ORDERED: MECL-133 PO (05:20)
[2021-01-10] MEDS ORDERED: ONDA4TAB11 PO (05:20)
[2021-01-10 05:39] VITALS: BP 158/72
== END 2021-01-10 05:40 | disposition home or self-care (01) ==
LOC: ER 02:38
DX: H81.10 Benign paroxysmal vertigo, unspecified ear (principal); I10 Essential (primary) hypertension; E11.9 Type 2 diabetes mellitus without complications; J45.909 Unspecified asthma, uncomplicated; Z87.81 Personal history of (healed) traumatic fracture
CPT/HCPCS: 36415; 70450; 71045; 80053; 82962; 84484; 85025; 93005; 99285; J8597

== ENCOUNTER 2021-01-22 22:59 | Emergency (ER) | payer OTHER ==
[~2021-01-22] VITALS: Ht 162.6 cm; Wt 100.0 kg
[~2021-01-22 22:59] MED LIST changes: +MECL-133 PO; +ONDA4TAB11 PO
[2021-01-22] MEDS ORDERED: ASPIRIN 81MG TABLET PO ONE (23:15)
[2021-01-22] MEDS ORDERED: NITROGLYCERIN 0.4MG TABLET SL SL PRN (23:15)
[2021-01-22] MEDS ORDERED: PREDNISONE 20MG TABLET PO STA (23:18)
[2021-01-22] MEDS ORDERED: IPRATROPIUM BROMIDE (0.02%) 0.5MG/2.5ML NEB HHN STA (23:18)
[2021-01-22] MEDS ORDERED: ALBUTEROL (0.083%) 2.5MG/3ML NEB HHN STA (23:18)
[2021-01-23 00:25] LABS: BASOPHILS % 0.4 % (0.0-2.0); EOSINOPHILS % 3.6 % (0.0-5.0); HEMATOCRIT. 38.9 % (36.0-48.0); HEMOGLOBIN. 12.8 g/dL (12.0-16.0); LYMPHOCYTES % 33.3 % (20.0-50.0); MEAN CORPUSCULAR VOLUME 91.4 fL (81.0-99.0); MEAN PLATELET VOLUME 8.2 fl (7.4-10.4); MONOCYTES % 10.2 % (2.0-8.0); NEUTROPHILS % 52.5 % (40.0-76.0); PLATELET 208 x1000/uL (130-400); RED BLOOD CELL COUNT 4.26 mill/uL (4.2-5.4)
[2021-01-23 00:34] LABS: CHLORIDE 102 mEq/L (98-107)
[2021-01-23 00:39] LABS: ETHANOL BLOOD < 10 mg/dL
[2021-01-23 02:50] LABS: *AMPHETAMINES SCREEN URINE NEGATIVE (NEGATIVE); *BARBITURATES SCREEN URINE NEGATIVE (NEGATIVE); *BENZODIAZEPINES SCREEN URINE NEGATIVE (NEGATIVE); *COCAINE SCREEN URINE NEGATIVE (NEGATIVE); METHADONE URINE SCREEN NEGATIVE (NEGATIVE); OPIATES URINE SCREEN NEGATIVE (NEGATIVE)
[2021-01-23 02:51] LABS: CANNABINOID URINE SCREEN NEGATIVE (NEGATIVE); PHENCYCLIDINE URINE SCREEN NEGATIVE (NEGATIVE)
[2021-01-23 04:08] VITALS: BP 160/83
== END 2021-01-23 04:22 | disposition home or self-care (01) ==
LOC: ER 22:59
DX: R07.89 Other chest pain (principal); I10 Essential (primary) hypertension; J45.909 Unspecified asthma, uncomplicated; E11.9 Type 2 diabetes mellitus without complications; F17.290 Nicotine dependence, other tobacco product, uncomplicated; Z79.899 Other long term (current) drug therapy; Z88.5 Allergy status to narcotic agent
CPT/HCPCS: 36415; 71045; 80053; 80305; 80320; 83880; 84484; 85025; 93005; 94640; 99285; 99406; J7512; Z7610; G0480

== ENCOUNTER 2021-03-25 02:39 | Emergency (ER) | payer MEDICAID, OTHER ==
[~2021-03-25] VITALS: Ht 165.1 cm; Wt 100.0 kg
[~2021-03-25 02:39] MED LIST changes: +AMLO10TA80 PO; +GUAI600T26 MT; +HYDR100T26 PO
[2021-03-25 02:50] VITALS: BP 150/64
[2021-03-25] MEDS: ACETAMINOPHEN 325MG TABLET PO ONE ×2 (05:23→05:50)
[2021-03-25 05:31] LABS: HEMATOCRIT. 41.8 % (36.0-48.0); HEMOGLOBIN. 13.1 g/dL (12.0-16.0); MEAN CORPUSCULAR VOLUME 92.7 fL (81.0-99.0); PLATELET 216 x1000/uL (130-400); RED CELL DISTRIBUTION WIDTH 14.5 % (11.6-14.6)
[2021-03-25 05:46] LABS: CHLORIDE 104 mEq/L (98-107)
[2021-03-25] MEDS ORDERED: KETOROLAC 60MG/2ML VIAL IM ONE (06:30)
[2021-03-25] MEDS ORDERED: METH-773 MT (07:39)
[2021-03-25] MEDS ORDERED: IBUP-2029 MT (07:39)
[2021-03-25 07:45] LABS: PLATELET ESTIMATE NORMAL
== END 2021-03-25 08:27 | disposition home or self-care (01) ==
LOC: ER 02:39
DX: M54.42 Lumbago with sciatica, left side (principal); M54.41 Lumbago with sciatica, right side; I10 Essential (primary) hypertension; J45.909 Unspecified asthma, uncomplicated; I25.10 Atherosclerotic heart disease of native coronary artery without angina pectoris; Z79.899 Other long term (current) drug therapy; Z88.6 Allergy status to analgesic agent; Z88.8 Allergy status to other drugs, medicaments and biological substances; Z91.041 Radiographic dye allergy status
CPT/HCPCS: 36415; 80053; 83880; 84484; 85025; 93005; 96372; 99284; J1885

== ENCOUNTER 2021-08-14 19:59 | Emergency (ER) | payer MEDICAID, OTHER ==
[~2021-08-14] VITALS: Ht 165.1 cm; Wt 114.0 kg
[~2021-08-14 19:59] MED LIST changes: +IBUP-2029 MT; +METH-773 MT
[2021-08-14 20:45] VITALS: BP 172/87
[2021-08-14] MEDS ORDERED: DEXA6TAB6 MT (22:30)
== END 2021-08-14 22:50 | disposition home or self-care (01) ==
LOC: ER 19:59
DX: U07.1 COVID-19 (principal); I10 Essential (primary) hypertension; J45.909 Unspecified asthma, uncomplicated; Z91.041 Radiographic dye allergy status; Z88.6 Allergy status to analgesic agent; Z79.899 Other long term (current) drug therapy
CPT/HCPCS: 87426; 99283

== ENCOUNTER 2021-10-23 02:39 | Emergency (ER) | payer MEDICAID, OTHER ==
[~2021-10-23] VITALS: Ht 167.6 cm; Wt 82.0 kg
[~2021-10-23 02:39] MED LIST changes: +DEXA6TAB6 MT
[2021-10-23] MEDS ORDERED: METHYLPREDNISOLONE SOD SUCC 125 MG/2 ML VIAL IV STA (03:12)
[2021-10-23] MEDS ORDERED: ALBUTEROL (0.083%) 2.5MG/3ML NEB HHN STA (03:12)
[2021-10-23] MEDS ORDERED: IPRATROPIUM BROMIDE (0.02%) 0.5MG/2.5ML NEB HHN STA ×2 (03:12→06:35)
[2021-10-23] MEDS ORDERED: MAGNESIUM 2 G PREMIX 50 ML IV ONE (06:45)
[2021-10-23] MEDS ORDERED: ALBUTEROL (0.083%) 2.5MG/3ML NEB HHN SCH (07:00)
[2021-10-23 08:55] LABS: BASOPHILS % 0.4 % (0.0-2.0); EOSINOPHILS % 2.5 % (0.0-5.0); HEMATOCRIT. 39.3 % (36.0-48.0); HEMOGLOBIN. 12.6 g/dL (12.0-16.0); LYMPHOCYTES % 37.8 % (20.0-50.0); MEAN CORPUSCULAR HEMOGLOBIN 30.4 pg (28.0-32.0); MEAN PLATELET VOLUME 8.5 fl (7.4-10.4); MONOCYTES % 13.4 % (2.0-8.0); NEUTROPHILS % 45.9 % (40.0-76.0); PLATELET 192 x1000/uL (130-400); RED BLOOD CELL COUNT 4.13 mill/uL (4.2-5.4); RED CELL DISTRIBUTION WIDTH 14.4 % (11.6-14.6)
[2021-10-23] MEDS ORDERED: METHYLPREDNISOLONE SOD SUCC 125 MG/2 ML VIAL IV SCH (09:00)
[2021-10-23 09:03] LABS: CHLORIDE 106 mEq/L (98-107)
[2021-10-23] MEDS ORDERED: DOXYCYCLINE HYCLATE 100 MG/VIAL IV ONE (11:30)
[2021-10-23] MEDS ORDERED: CEFTRIAXONE 1 G PREMIX 50 ML IV ONE (11:30)
[2021-10-23] MEDS ORDERED: DOXYCYCLINE 100 MG in DEXT 5% WATER 100 ML IV SCH (12:00)
[2021-10-23 12:28] VITALS: BP 155/68
== END 2021-10-23 12:59 | disposition short-term general hospital (02) ==
LOC: ER 02:39
DX: J45.901 Unspecified asthma with (acute) exacerbation (principal); I25.2 Old myocardial infarction; I10 Essential (primary) hypertension; Z20.822 Contact with and (suspected) exposure to COVID-19; Z79.899 Other long term (current) drug therapy; Z88.6 Allergy status to analgesic agent; Z91.041 Radiographic dye allergy status
CPT/HCPCS: 36415; 71045; 80053; 83880; 84484; 85025; 87426; 93005; 94640; 96365; 96367; 96368; 96375; 99285; C9803; J0696; J2930; J3475; J3490; J7060; U0003; U0005; Z7610

== ENCOUNTER 2022-02-27 07:24 | Inpatient (IN) | payer MEDICAID, OTHER ==
[~2022-02-27] VITALS: Ht 165.1 cm; Wt 123.8 kg
[2022-02-27] MEDS ORDERED: HYDROCODONE/ACETAMINOPHEN 5/325MG TABLET PO STA (07:44)
[2022-02-27] MEDS ORDERED: NITROGLYCERIN OINT 1GM/INCH UDPKT TD ONE (07:45)
[2022-02-27] MEDS ORDERED: ASPIRIN 81MG TABLET PO ONE (07:45)
[2022-02-27 08:14] LABS: BASOPHILS % 0.7 % (0.0-2.0); EOSINOPHILS % 3.1 % (0.0-5.0); HEMATOCRIT. 40.7 % (36.0-48.0); HEMOGLOBIN. 13.6 g/dL (12.0-16.0); LYMPHOCYTES % 34.6 % (20.0-50.0); MEAN PLATELET VOLUME 7.8 fl (7.4-10.4); MONOCYTES % 10.7 % (2.0-8.0); NEUTROPHILS % 50.9 % (40.0-76.0); PLATELET 245 x1000/uL (130-400); RED BLOOD CELL COUNT 4.52 mill/uL (4.2-5.4); RED CELL DISTRIBUTION WIDTH 13.2 % (11.6-14.6)
[2022-02-27 08:24] LABS: CHLORIDE 102 mEq/L (98-107)
[2022-02-27] MEDS ORDERED: HYDROCODONE/ACETAMINOPHEN 5/325MG TABLET PO NR (10:30)
[2022-02-27] MEDS ORDERED: ONDANSETRON HCL 4MG/2ML INJ IV PRN (10:45)
[2022-02-27] MEDS ORDERED: ACETAMINOPHEN 325MG TABLET PO PRN (10:45)
[2022-02-27] MEDS: AMLODIPINE 10MG TABLET PO SCH (13:16)
[2022-02-27 20:00] VITALS: BP 154/65
[2022-02-27] MEDS ORDERED: NITROGLYCERIN 0.4MG TABLET SL SL PRN (21:00)
[2022-02-27] MEDS ORDERED: IPRATROPIUM/ALBUTEROL 0.5-3(2.5)MG/3ML NEB HHN PRN ×2 (21:00)
[2022-02-27] MEDS ORDERED: DIPHENHYDRAMINE 50MG CAPSULE PO PRN (21:45)
[2022-02-27] MEDS ORDERED: ATORVASTATIN CALCIUM 40MG TABLET PO SCH (22:02)
[2022-02-27] MEDS ORDERED: DIPHENHYDRAMINE 25MG CAPSULE ONE (22:07)
[2022-02-27 23:15] VITALS: BP 145/57
[2022-02-28] MEDS ORDERED: CLONIDINE 0.1MG TABLET PO PRN (07:15)
[2022-02-28 07:51] LABS: BASOPHILS % 0.6 % (0.0-2.0); EOSINOPHILS % 3.8 % (0.0-5.0); HEMATOCRIT. 39.4 % (36.0-48.0); HEMOGLOBIN. 13.1 g/dL (12.0-16.0); MEAN CORPUSCULAR HEMOGLOBIN 29.6 pg (28.0-32.0); MEAN CORPUSCULAR VOLUME 89.1 fL (81.0-99.0); MEAN PLATELET VOLUME 8.4 fl (7.4-10.4); MONOCYTES % 13.7 % (2.0-8.0); NEUTROPHILS % 45.9 % (40.0-76.0); PLATELET 228 x1000/uL (130-400); RED BLOOD CELL COUNT 4.42 mill/uL (4.2-5.4); RED CELL DISTRIBUTION WIDTH 13.4 % (11.6-14.6)
[2022-02-28 08:02] VITALS: BP 176/74
[2022-02-28 08:09] LABS: CHLORIDE 104 mEq/L (98-107)
[2022-02-28] MEDS: AMLODIPINE 10MG TABLET PO SCH (08:11)
[2022-02-28 08:16] LABS: LDL CHOLESTEROL 142 mg/dL (5-100)
[2022-02-28 08:21] LABS: HDL CHOLESTEROL 44 mg/dL (40-59)
[2022-02-28] MEDS ORDERED: AMLODIPINE 10MG TABLET PO SCH (09:00)
[2022-02-28] MEDS ORDERED: ENOXAPARIN 40MG/0.4ML SYR SUBCUT SCH (09:00)
[2022-02-28] MEDS ORDERED: PANTOPRAZOLE SODIUM 40 MG/VIAL IV SCH (09:00)
[2022-02-28] MEDS ORDERED: ASPIRIN 81MG TABLET PO SCH ×2 (09:00)
[2022-02-28] MEDS ORDERED: METOPROLOL TARTRATE 50MG TABLET PO SCH (09:00)
[2022-02-28] MEDS ORDERED: LOSARTAN POTASSIUM 50 MG TABLET PO SCH (09:30)
[2022-02-28] MEDS ORDERED: FLUTICASONE PROPIONATE 50MCG/SPRAY BOTTLE BOTHNSTRLS SCH (11:00)
[2022-02-28 11:38] VITALS: BP 124/46
[2022-02-28 13:48] VITALS: BP 124/46
[2022-02-28] MEDS ORDERED: ENOXAPARIN 30MG/0.3ML SYR SUBCUT SCH (21:00)
== END 2022-02-28 16:00 | disposition home or self-care (01) | DRG 203 ==
LOC: ER 07:48 → ENRESERV 18:08 → ER 19:01 → 7EST 21:00
PROVIDERS: ADMIT Internal Medicine; ATTEND Internal Medicine
DX: M94.0 Chondrocostal junction syndrome [Tietze] (principal); E44.1 Mild protein-calorie malnutrition; I25.10 Atherosclerotic heart disease of native coronary artery without angina pectoris; E78.5 Hyperlipidemia, unspecified; F17.210 Nicotine dependence, cigarettes, uncomplicated; I10 Essential (primary) hypertension; J44.9 Chronic obstructive pulmonary disease, unspecified; I25.2 Old myocardial infarction; Z88.5 Allergy status to narcotic agent; Z91.041 Radiographic dye allergy status; Z79.899 Other long term (current) drug therapy; Z68.42 Body mass index [BMI] 45.0-49.9, adult
CPT/HCPCS: 36415; 71045; 80048; 80053; 80061; 83880; 84484; 85025; 93005; 93306; 94640; 99285; C9113; J1650; Q0163

== ENCOUNTER 2022-05-19 04:42 | Emergency (ER) | payer MEDICAID ==
[~2022-05-19] VITALS: Ht 165.1 cm; Wt 122.0 kg
[~2022-05-19 04:42] MED LIST changes: -DEXA6TAB6 MT
[2022-05-19 04:49] VITALS: BP 160/63
[2022-05-19] MEDS ORDERED: KETOROLAC 60MG/2ML VIAL IM ONE (06:30)
[2022-05-19] MEDS ORDERED: TETR15DR17 OP (06:37)
== END 2022-05-19 06:45 | disposition home or self-care (01) ==
LOC: ER 04:42
DX: G47.53 Recurrent isolated sleep paralysis (principal); J45.909 Unspecified asthma, uncomplicated; I10 Essential (primary) hypertension; I25.2 Old myocardial infarction; Z79.899 Other long term (current) drug therapy
CPT/HCPCS: 99283

== ENCOUNTER 2022-08-22 21:51 | Emergency (ER) | payer MEDICAID ==
[~2022-08-22] VITALS: Ht 165.1 cm; Wt 127.0 kg
[~2022-08-22 21:51] MED LIST changes: +TETR15DR17 OP
[2022-08-22] MEDS ORDERED: KETOROLAC 60MG/2ML VIAL IM ONE (22:15)
[2022-08-22] MEDS ORDERED: IBUP-2029 MT (22:49)
[2022-08-23] VITALS: BP 125/85
== END 2022-08-23 00:07 | disposition home or self-care (01) ==
LOC: ER 21:51
DX: R51.9 Headache, unspecified (principal); J45.909 Unspecified asthma, uncomplicated; I25.2 Old myocardial infarction; I10 Essential (primary) hypertension; Z91.041 Radiographic dye allergy status; Z79.899 Other long term (current) drug therapy
CPT/HCPCS: 70450; 96372; 99284; J1885

== ENCOUNTER 2022-09-11 13:52 | Emergency (ER) | payer MEDICAID ==
[~2022-09-11] VITALS: Ht 157.5 cm; Wt 86.0 kg
[2022-09-11] MEDS ORDERED: ACETAMINOPHEN 325MG TABLET PO SCH (14:30)
[2022-09-11] MEDS ORDERED: MECLIZINE 25MG TABLET PO SCH (14:30)
[2022-09-11 14:41] LABS: BASOPHILS % 0.8 % (0.0-2.0); EOSINOPHILS % 3.1 % (0.0-5.0); HEMATOCRIT. 41.4 % (36.0-48.0); HEMOGLOBIN. 13.7 g/dL (12.0-16.0); LYMPHOCYTES % 34.5 % (20.0-50.0); MEAN CORPUSCULAR VOLUME 90.7 fL (81.0-99.0); MEAN PLATELET VOLUME 7.9 fl (7.4-10.4); MONOCYTES % 11.5 % (2.0-8.0); NEUTROPHILS % 50.1 % (40.0-76.0); PLATELET 216 x1000/uL (130-400); RED BLOOD CELL COUNT 4.56 mill/uL (4.2-5.4); RED CELL DISTRIBUTION WIDTH 14.2 % (11.6-14.6)
[2022-09-11 15:16] LABS: CHLORIDE 100 mEq/L (98-107)
[2022-09-11 15:43] LABS: ETHANOL BLOOD < 10 mg/dL
[2022-09-11] MEDS ORDERED: MECL-159 MT (17:25)
[2022-09-11 17:41] VITALS: BP 140/55
== END 2022-09-11 18:10 | disposition home or self-care (01) ==
LOC: ER 13:52
DX: R42 Dizziness and giddiness (principal); I10 Essential (primary) hypertension; E11.9 Type 2 diabetes mellitus without complications; I25.2 Old myocardial infarction; J44.9 Chronic obstructive pulmonary disease, unspecified; Z88.5 Allergy status to narcotic agent; Z91.041 Radiographic dye allergy status
CPT/HCPCS: 36415; 70450; 80053; 80320; 85025; 93005; 99285; J8597; G0480

== ENCOUNTER 2023-08-22 00:45 | Emergency (ER) | payer BC, MEDICAID ==
[~2023-08-22] VITALS: Ht 152.4 cm; Wt 125.0 kg
[~2023-08-22 00:45] MED LIST changes: +MECL-299 MT
[2023-08-22 00:49] VITALS: TEMP 98.4; O2SAT 98
[2023-08-22] MEDS ORDERED: NICARDIPINE 50 MG in SODIUM CHLORIDE 0.9% 230 ML IV PRN (01:00)
[2023-08-22 01:21] LABS: BASOPHILS % 0.6 % (0.0-2.0); EOSINOPHILS % 3.1 % (0.0-5.0); HEMATOCRIT. 40.9 % (36.0-48.0); HEMOGLOBIN. 13.4 g/dL (12.0-16.0); LYMPHOCYTES % 43.9 % (20.0-50.0); MEAN CORPUSCULAR HEMOGLOBIN 30.1 pg (28.0-32.0); MEAN CORPUSCULAR HGB CONC 32.8 g/dL (31.0-37.0); MEAN CORPUSCULAR VOLUME 91.6 fL (81.0-99.0); MEAN PLATELET VOLUME 8.1 fl (7.4-10.4); MONOCYTES % 8.4 % (2.0-8.0); PLATELET 223 x1000/uL (130-400); RED BLOOD CELL COUNT 4.46 mill/uL (4.2-5.4); RED CELL DISTRIBUTION WIDTH 13.4 % (11.6-14.6); WHITE BLOOD COUNT 5.5 x1000/uL (4.5-11.0)
[2023-08-22 01:33] LABS: CHLORIDE 106 mEq/L (98-107); INDEX HEMOLYSI 1 (1-3); INDEX ICTERIC 1 (1-4); INDEX LIPEMIC 1 (1-3); POTASSIUM 4.1 mEq/L (3.5-5.1); SODIUM 141 mEq/L (136-145)
[2023-08-22 01:53] LABS: ALBUMIN 3.2 g/dL (3.4-5.0); CALCIUM 9.4 mg/dL (8.5-10.1); CARBON DIOXIDE 35 mEq/L (21-32); CREATININE 0.7 mg/dL (0.6-1.3); GLUCOSE 110 mg/dL (70-105); PROTEIN TOTAL 7.5 g/dL (6.0-8.3)
[2023-08-22 01:54] LABS: ALANINE AMINOTRANSFERASE 27 IU/L (13-61); ASPARTATE AMINOTRANSFERASE 28 IU/L (15-37); TROPONIN I HIGH SENSITIVITY 33 ng/L (<54)
[2023-08-22 01:55] LABS: ETHANOL BLOOD < 10 mg/dL (<10)
[2023-08-22 01:56] LABS: BILIRUBIN TOTAL 0.1 mg/dL (0.1-1.0); UREA NITROGEN BLOOD 13 mg/dL (7-21)
[2023-08-22] MEDS ORDERED: NICARDIPINE 40 MG/200 ML PREMIX 200 ML IV PRN (02:00)
[2023-08-22 02:05] LABS: NT PRO B-TYPE NATRIURETIC PEP 542 pg/mL (5-125)
[2023-08-22] MEDS ORDERED: HYDROCHLOROTHIAZIDE 25MG TABLET PO ONE (02:30)
[2023-08-22] MEDS ORDERED: CLONIDINE 0.1MG TABLET PO ONE (02:30)
[2023-08-22 05:25] VITALS: BP 156/69; PULSE 50; RESP 18
== END 2023-08-22 06:35 | disposition left against medical advice (07) ==
LOC: ER 00:45 → EDBEDREQ 04:33 → ER 06:35
DX: I25.2 Old myocardial infarction (principal); I10 Essential (primary) hypertension; G44.209 Tension-type headache, unspecified, not intractable; Z88.5 Allergy status to narcotic agent; Z91.041 Radiographic dye allergy status; Z79.899 Other long term (current) drug therapy
CPT/HCPCS: 80053; 80320; 83880; 83690; 85025; 84484; 36415; 71045; 70450; 93005; 99285; Z7610; G0480

== ENCOUNTER 2024-01-28 07:47 | Emergency (ER) | payer MEDICAID, OTHER ==
[~2024-01-28] VITALS: Ht 162.6 cm; Wt 91.0 kg
[~2024-01-28 07:47] MED LIST changes: +MED4 MT
[2024-01-28] MEDS ORDERED: IPRATROPIUM BROMIDE (0.02%) 0.5MG/2.5ML NEB HHN STA (07:53)
[2024-01-28] MEDS ORDERED: METHYLPREDNISOLONE SOD SUCC 125MG/2ML (ACT-O-VIAL) IV STA (07:53)
[2024-01-28] MEDS ORDERED: ALBUTEROL (0.083%) 2.5MG/3ML NEB HHN STA (07:53)
[2024-01-28 08:27] LABS: BASOPHILS % 0.7 % (0.0-2.0); EOSINOPHILS % 3.2 % (0.0-5.0); HEMATOCRIT. 41.7 % (36.0-48.0); HEMOGLOBIN. 13.5 g/dL (12.0-16.0); LYMPHOCYTES % 47.9 % (20.0-50.0); MEAN CORPUSCULAR HEMOGLOBIN 29.8 pg (28.0-32.0); MEAN CORPUSCULAR HGB CONC 32.4 g/dL (31.0-37.0); MEAN CORPUSCULAR VOLUME 91.7 fL (81.0-99.0); MEAN PLATELET VOLUME 8.5 fl (7.4-10.4); MONOCYTES % 10.7 % (2.0-8.0); NEUTROPHILS % 37.5 % (40.0-76.0); PLATELET 230 x1000/uL (130-400); RED BLOOD CELL COUNT 4.55 mill/uL (4.2-5.4); RED CELL DISTRIBUTION WIDTH 14.2 % (11.6-14.6); WHITE BLOOD COUNT 4.5 x1000/uL (4.5-11.0)
[2024-01-28 08:58] LABS: ALANINE AMINOTRANSFERASE 17 IU/L (10-49); ALBUMIN 4.3 g/dL (3.2-4.8); ASPARTATE AMINOTRANSFERASE 29 IU/L (<34); BILIRUBIN TOTAL 0.3 mg/dL (0.1-1.0); CALCIUM 9.4 mg/dL (8.7-10.4); CARBON DIOXIDE 32 mEq/L (21-32); CHLORIDE 104 mEq/L (98-107); CREATININE 0.7 mg/dL (0.6-1.0); GLUCOSE 96 mg/dL (70-105); POTASSIUM 3.9 mEq/L (3.5-5.1); PROTEIN TOTAL 7.7 g/dL (6.0-8.3); SODIUM 138 mEq/L (136-145); TROPONIN I HIGH SENSITIVITY 34 ng/L (3.0-34); UREA NITROGEN BLOOD 12 mg/dL (9-23)
[2024-01-28] MEDS: METHYLPREDNISOLONE SOD SUCC 125MG/2ML (ACT-O-VIAL) IV NR (09:42)
[2024-01-28] MEDS: MECLIZINE 25MG TABLET PO ONE (09:42)
[2024-01-28] MEDS: SODIUM CHLORIDE 0.9% 1,000 ML IV ONE (09:42)
[2024-01-28] MEDS: ALBUTEROL (0.083%) 2.5MG/3ML NEB HHN NR (10:46)
[2024-01-28] MEDS: IPRATROPIUM BROMIDE (0.02%) 0.5MG/2.5ML NEB HHN NR (10:46)
[2024-01-28 10:48] VITALS: PULSE 64; RESP 18; O2SAT 98
[2024-01-28 11:13] VITALS: BP 168/88; PULSE 78; RESP 20; TEMP 98.6
== END 2024-01-28 11:35 | disposition short-term general hospital (02) ==
LOC: ER 08:05 → CANBEDREQ 10:15 → ER 11:35
DX: R07.89 Other chest pain (principal); R42 Dizziness and giddiness; I48.91 Unspecified atrial fibrillation; J44.9 Chronic obstructive pulmonary disease, unspecified; I10 Essential (primary) hypertension; I25.2 Old myocardial infarction; Z79.899 Other long term (current) drug therapy
CPT/HCPCS: 80053; 83880; 85025; 84484; 36415; 71045; 94640; 93005; 96361; 96374; 99285; J8597; J2930; Z7610 ×3; J7030

== ENCOUNTER 2024-02-29 10:37 | Emergency (ER) | payer OTHER ==
[~2024-02-29] VITALS: Ht 165.1 cm; Wt 113.0 kg
[2024-02-29 11:29] LABS: BASOPHILS % 0.6 % (0.0-2.0); EOSINOPHILS % 1.8 % (0.0-5.0); HEMATOCRIT. 39.9 % (36.0-48.0); HEMOGLOBIN. 13.2 g/dL (12.0-16.0); LYMPHOCYTES % 31.8 % (20.0-50.0); MEAN CORPUSCULAR HEMOGLOBIN 30.1 pg (28.0-32.0); MEAN PLATELET VOLUME 8.1 fl (7.4-10.4); MONOCYTES % 10.7 % (2.0-8.0); NEUTROPHILS % 55.1 % (40.0-76.0); PLATELET 234 x1000/uL (130-400); RED BLOOD CELL COUNT 4.39 mill/uL (4.2-5.4); RED CELL DISTRIBUTION WIDTH 13.8 % (11.6-14.6); WHITE BLOOD COUNT 5.8 x1000/uL (4.5-11.0)
[2024-02-29] MEDS: PREDNISONE 20MG TABLET PO STA (11:42)
[2024-02-29 11:48] LABS: CHLORIDE 101 mEq/L (98-107); POTASSIUM 3.7 mEq/L (3.5-5.1); SODIUM 139 mEq/L (136-145)
[2024-02-29 11:49] LABS: CALCIUM 9.3 mg/dL (8.7-10.4); CARBON DIOXIDE 31 mEq/L (21-32)
[2024-02-29 11:54] LABS: CREATININE 0.7 mg/dL (0.6-1.0); GLUCOSE 109 mg/dL (70-105); TROPONIN I HIGH SENSITIVITY 33 ng/L (3.0-34); UREA NITROGEN BLOOD 8 mg/dL (9-23)
[2024-02-29 11:56] LABS: ALANINE AMINOTRANSFERASE 13 IU/L (10-49); ALBUMIN 4.1 g/dL (3.2-4.8); ASPARTATE AMINOTRANSFERASE 22 IU/L (<34); BILIRUBIN TOTAL 0.3 mg/dL (0.1-1.0); PROTEIN TOTAL 7.6 g/dL (6.0-8.3)
[2024-02-29] MEDS ORDERED: P20 PO (12:03)
[2024-02-29 12:15] VITALS: PULSE 66; RESP 22; O2SAT 95
[2024-02-29] MEDS: IPRATROPIUM BROMIDE (0.02%) 0.5MG/2.5ML NEB HHN STA (12:15)
[2024-02-29] MEDS: ALBUTEROL (0.083%) 2.5MG/3ML NEB HHN STA (12:20)
[2024-02-29 13:11] VITALS: BP 142/78; PULSE 76; RESP 14; TEMP 98.2
== END 2024-02-29 13:47 | disposition home or self-care (01) ==
LOC: ER 11:03 → EDBEDREQ 11:08 → CANBEDREQ 12:04 → ER 13:47
DX: J44.1 Chronic obstructive pulmonary disease with (acute) exacerbation (principal); I48.91 Unspecified atrial fibrillation; I10 Essential (primary) hypertension; I25.2 Old myocardial infarction; Z79.899 Other long term (current) drug therapy
CPT/HCPCS: 80053; 83880; 85025; 84484; 36415; 71045; 93005; 94644; 99285; J7512; Z7610 ×6

== ENCOUNTER 2024-03-23 21:43 | Emergency (ER) | payer OTHER ==
[~2024-03-23] VITALS: Ht 165.1 cm; Wt 114.0 kg
[~2024-03-23 21:43] MED LIST changes: +P20 PO
[2024-03-23 21:53] VITALS: TEMP 98.2
[2024-03-23] MEDS ORDERED: LIDOCAINE 5% PATCH TOP SCH (22:30)
[2024-03-23] MEDS ORDERED: ACETAMINOPHEN 325MG TABLET PO ONE (22:30)
[2024-03-23 23:47] LABS: BASOPHILS % 0.8 % (0.0-2.0); EOSINOPHILS % 1.9 % (0.0-5.0); HEMATOCRIT. 42.1 % (36.0-48.0); HEMOGLOBIN. 13.6 g/dL (12.0-16.0); LYMPHOCYTES % 34.9 % (20.0-50.0); MEAN CORPUSCULAR HEMOGLOBIN 29.3 pg (28.0-32.0); MEAN CORPUSCULAR HGB CONC 32.2 g/dL (31.0-37.0); MEAN PLATELET VOLUME 8.5 fl (7.4-10.4); MONOCYTES % 10.9 % (2.0-8.0); NEUTROPHILS % 51.5 % (40.0-76.0); PLATELET 217 x1000/uL (130-400); RED BLOOD CELL COUNT 4.63 mill/uL (4.2-5.4); RED CELL DISTRIBUTION WIDTH 13.9 % (11.6-14.6); WHITE BLOOD COUNT 4.9 x1000/uL (4.5-11.0)
[2024-03-23] MEDS: IPRATROPIUM BROMIDE (0.02%) 0.5MG/2.5ML NEB HHN STA (23:48)
[2024-03-23] MEDS: ALBUTEROL (0.083%) 2.5MG/3ML NEB HHN STA (23:49)
[2024-03-23 23:58] LABS: CHLORIDE 102 mEq/L (98-107); POTASSIUM 4.2 mEq/L (3.5-5.1); SODIUM 137 mEq/L (136-145)
[2024-03-23 23:59] LABS: CARBON DIOXIDE 33 mEq/L (21-32); INR 0.9; PARTIAL THROMBOPLASTIN TIME 29.4 sec (23.4-31.0); PROTHROMBIN TIME 9.8 sec (9.6-11.0)
[2024-03-24 00:04] LABS: CREATININE 0.7 mg/dL (0.6-1.0); GLUCOSE 106 mg/dL (70-105); UREA NITROGEN BLOOD 11 mg/dL (9-23)
[2024-03-24 00:05] LABS: TROPONIN I HIGH SENSITIVITY 31 ng/L (3.0-34)
[2024-03-24 00:08] LABS: ETHANOL BLOOD < 10 mg/dL (<10)
[2024-03-24 00:14] LABS: CALCIUM 10.7 mg/dL (8.7-10.4)
[2024-03-24 00:24] VITALS: PULSE 65; RESP 12; O2SAT 95
[2024-03-24 01:25] VITALS: BP 209/92; PULSE 84; RESP 14
[2024-03-24] MEDS ORDERED: ACET-2708 MT (01:48)
[2024-03-24] MEDS ORDERED: ALBU05 NEB (01:48)
== END 2024-03-24 02:13 | disposition home or self-care (01) ==
LOC: ER 21:43
DX: J45.901 Unspecified asthma with (acute) exacerbation (principal); I25.2 Old myocardial infarction; I10 Essential (primary) hypertension; J44.1 Chronic obstructive pulmonary disease with (acute) exacerbation; Z88.8 Allergy status to other drugs, medicaments and biological substances; Z79.899 Other long term (current) drug therapy; Z00.00 Encounter for general adult medical examination without abnormal findings
CPT/HCPCS: 80048; 80320; 83880; 83690; 85025; 85610; 85730; 84484; 36415; 71045; 93005; 94644; 99285; Z7610 ×2; G0480

== ENCOUNTER 2024-06-28 12:04 | Emergency (ER) | payer OTHER ==
[~2024-06-28] VITALS: Ht 165.1 cm; Wt 127.0 kg
[~2024-06-28 12:04] MED LIST changes: +ACET-2708 MT; +ALBU05 NEB
[2024-06-28 12:48] VITALS: PULSE 61; RESP 20; O2SAT 99
[2024-06-28] MEDS: IPRATROPIUM BROMIDE (0.02%) 0.5MG/2.5ML NEB HHN STA (12:48)
[2024-06-28] MEDS: ALBUTEROL (0.083%) 2.5MG/3ML NEB HHN STA (12:48)
[2024-06-28] MEDS: METHYLPREDNISOLONE SOD SUCC 125MG/2ML (ACT-O-VIAL) IV STA (12:56)
[2024-06-28 13:11] LABS: BASOPHILS % 0.3 % (0.0-2.0); EOSINOPHILS % 3.3 % (0.0-5.0); HEMATOCRIT. 38.2 % (36.0-48.0); HEMOGLOBIN. 12.4 g/dL (12.0-16.0); LYMPHOCYTES % 36.9 % (20.0-50.0); MEAN CORPUSCULAR HEMOGLOBIN 30.1 pg (28.0-32.0); MEAN CORPUSCULAR HGB CONC 32.5 g/dL (31.0-37.0); MEAN CORPUSCULAR VOLUME 92.7 fL (81.0-99.0); MEAN PLATELET VOLUME 8.2 fl (7.4-10.4); MONOCYTES % 12.1 % (2.0-8.0); NEUTROPHILS % 47.4 % (40.0-76.0); PLATELET 216 x1000/uL (130-400); RED BLOOD CELL COUNT 4.12 mill/uL (4.2-5.4); RED CELL DISTRIBUTION WIDTH 15.1 % (11.6-14.6)
[2024-06-28 13:15] LABS: CHLORIDE 105 mEq/L (98-107); POTASSIUM 4.3 mEq/L (3.5-5.1); SODIUM 138 mEq/L (136-145)
[2024-06-28 13:16] LABS: CARBON DIOXIDE 33 mEq/L (21-32)
[2024-06-28 13:17] LABS: CALCIUM 9.3 mg/dL (8.7-10.4)
[2024-06-28 13:21] LABS: CREATININE 0.7 mg/dL (0.6-1.0); GLUCOSE 103 mg/dL (70-105); UREA NITROGEN BLOOD 13 mg/dL (9-23)
[2024-06-28 13:22] LABS: TROPONIN I HIGH SENSITIVITY 24 ng/L (3.0-34)
[2024-06-28 17:31] VITALS: TEMP 36.55848
[2024-06-28] MEDS: HYDRALAZINE HCL 10MG TABLET PO ONE (18:06)
[2024-06-28 18:58] VITALS: BP 188/86; PULSE 74; RESP 16; O2SAT 94
[2024-06-28] MEDS ORDERED: CEFTRIAXONE 1GM/50ML 50 ML IV NR (19:39)
[2024-06-28] MEDS ORDERED: AZITHROMYCIN 500MG/250ML 250 ML IV NR (19:39)
== END 2024-06-28 19:00 | disposition short-term general hospital (02) ==
LOC: ER 12:04 → EDBEDREQTM 18:02 → EDBEDREQ 18:02 → EDBEDREQSVC 18:02 → ER 19:00
DX: J44.1 Chronic obstructive pulmonary disease with (acute) exacerbation (principal); J18.9 Pneumonia, unspecified organism; I48.91 Unspecified atrial fibrillation; I10 Essential (primary) hypertension; I25.2 Old myocardial infarction; F17.210 Nicotine dependence, cigarettes, uncomplicated; Z79.899 Other long term (current) drug therapy
CPT/HCPCS: 80048; 83880; 85025; 84484; 36415; 71045; 94640; 93005; 96374; 99285; J2919; Z7610 ×5

== ENCOUNTER 2024-08-24 23:56 | Emergency (ER) | payer OTHER ==
[~2024-08-24] VITALS: Ht 165.1 cm; Wt 125.0 kg
[~2024-08-24 23:56] MED LIST changes: +HYDR100T11 PO; -HYDR100T26 PO; -MED4 MT; +METH4TAB95 MT; +ONDA-239 PO; -ONDA4TAB11 PO
[2024-08-25] MEDS: HYDROCODONE/ACETAMINOPHEN 5/325MG TABLET PO ONE (00:50)
[2024-08-25] MEDS: DEXAMETHASONE 10 MG/ML VIAL IM ONE (01:30)
[2024-08-25] MEDS: IPRATROPIUM/ALBUTEROL 0.5-3(2.5)MG/3ML NEB HHN ONE (01:32)
[2024-08-25 01:34] VITALS: PULSE 76; RESP 18; O2SAT 100
[2024-08-25] MEDS ORDERED: P50 MT (02:27)
[2024-08-25 02:38] VITALS: BP 135/67; PULSE 76; RESP 18; TEMP 37.05852; O2SAT 100
== END 2024-08-25 02:39 | disposition home or self-care (01) ==
LOC: ER 23:56
DX: G89.29 Other chronic pain (principal); M54.50 Low back pain, unspecified; J45.901 Unspecified asthma with (acute) exacerbation; G47.30 Sleep apnea, unspecified; J44.1 Chronic obstructive pulmonary disease with (acute) exacerbation; I10 Essential (primary) hypertension; Z79.899 Other long term (current) drug therapy; Z88.5 Allergy status to narcotic agent; Z88.8 Allergy status to other drugs, medicaments and biological substances
CPT/HCPCS: 99283; 94640; 96372; Z7610 ×3; J1100

== ENCOUNTER 2024-12-30 01:42 | Emergency (ER) | payer MEDICARE, MEDICAID ==
[~2024-12-30] VITALS: Ht 167.6 cm; Wt 91.0 kg
[~2024-12-30 01:42] MED LIST changes: +GABA-1180 MT; -GABA-532 MT; +P50 MT
[2024-12-30 01:44] VITALS: BP 196/78; PULSE 73; RESP 16; TEMP 37.3; O2SAT 95
[2024-12-30 03:52] LABS: BASOPHILS % 0.6 % (0.0-2.0); EOSINOPHILS % 2.3 % (0.0-5.0); HEMATOCRIT. 42.3 % (36.0-48.0); HEMOGLOBIN. 13.5 g/dL (12.0-16.0); LYMPHOCYTES % 39.3 % (20.0-50.0); MEAN CORPUSCULAR HEMOGLOBIN 28.5 pg (28.0-32.0); MEAN CORPUSCULAR HGB CONC 31.8 g/dL (31.0-37.0); MEAN CORPUSCULAR VOLUME 89.6 fL (81.0-99.0); MEAN PLATELET VOLUME 8.4 fl (7.4-10.4); MONOCYTES % 13.3 % (2.0-8.0); NEUTROPHILS % 44.5 % (40.0-76.0); PLATELET 233 x1000/uL (130-400); RED BLOOD CELL COUNT 4.72 mill/uL (4.2-5.4); RED CELL DISTRIBUTION WIDTH 14.2 % (11.6-14.6); WHITE BLOOD COUNT 4.8 x1000/uL (4.5-11.0)
[2024-12-30 04:00] LABS: CHLORIDE 102 mEq/L (98-107); POTASSIUM 4.4 mEq/L (3.5-5.1); SODIUM 142 mEq/L (136-145)
[2024-12-30 04:01] LABS: CARBON DIOXIDE 36 mEq/L (21-32)
[2024-12-30 04:02] LABS: CALCIUM 9.9 mg/dL (8.7-10.4)
[2024-12-30 04:05] LABS: INR 0.9; PARTIAL THROMBOPLASTIN TIME 30.1 sec (23.4-31.0); PROTHROMBIN TIME 9.9 sec (9.6-11.0)
[2024-12-30 04:06] LABS: CREATININE 0.8 mg/dL (0.6-1.0); GLUCOSE 99 mg/dL (70-105); UREA NITROGEN BLOOD 10 mg/dL (9-23)
[2024-12-30 04:56] LABS: CLARITY URINE CLEAR (CLEAR); COLOR URINE YELLOW (YELLOW); GLUCOSE URINE NEGATIVE (NEGATIVE); KETONES URINE NEGATIVE (NEGATIVE); LEUKOCYTE ESTERASE URINE NEGATIVE (NEGATIVE); NITRITE URINE NEGATIVE (NEGATIVE); OCCULT BLOOD URINE NEGATIVE (NEGATIVE); PROTEIN URINE NEGATIVE (NEGATIVE); SPECIFIC GRAVITY URINE 1.011 (1.005-1.030)
[2024-12-30 05:03] LABS: *AMPHETAMINES SCREEN URINE NEGATIVE (NEGATIVE); *BARBITURATES SCREEN URINE NEGATIVE (NEGATIVE); *BENZODIAZEPINES SCREEN URINE NEGATIVE (NEGATIVE); *COCAINE SCREEN URINE NEGATIVE (NEGATIVE); CANNABINOID URINE SCREEN NEGATIVE (NEGATIVE); ECSTASY MDMA SCREEN URINE NEGATIVE (NEGATIVE); METHADONE URINE SCREEN NEGATIVE (NEGATIVE); OPIATES URINE SCREEN NEGATIVE (NEGATIVE); PHENCYCLIDINE URINE SCREEN NEGATIVE (NEGATIVE)
[2024-12-30 05:08] LABS: ETHANOL BLOOD < 10 mg/dL (<10); TROPONIN I HIGH SENSITIVITY 36 ng/L (3.0-34)
== END 2024-12-30 05:17 | disposition home or self-care (01) ==
LOC: ER 01:42
DX: I10 Essential (primary) hypertension (principal); R25.2 Cramp and spasm; J44.89 Other specified chronic obstructive pulmonary disease; Z00.00 Encounter for general adult medical examination without abnormal findings; Z88.8 Allergy status to other drugs, medicaments and biological substances; Z88.5 Allergy status to narcotic agent; Z91.041 Radiographic dye allergy status; Z91.148 Patient's other noncompliance with medication regimen for other reason; Z79.899 Other long term (current) drug therapy
CPT/HCPCS: 36415; 71045; 80048; 80305; 80320; 81003; 83880; 84484; 85025; 93005; 99285; G0480